=== PATIENT | male | born 1955 | race African-American/Black ===

== ENCOUNTER 2022-02-10 03:12 | Emergency (ER) | payer MEDICARE, MEDICAID ==
[~2022-02-10] VITALS: Ht 175.3 cm; Wt 100.0 kg
[2022-02-10] MEDS ORDERED: SODIUM CHLORIDE 0.9% 1,000 ML IV ONE (05:00)
[2022-02-10] MEDS ORDERED: ONDANSETRON HCL 4MG/2ML INJ IV STA ×2 (05:19→10:17)
[2022-02-10] MEDS ORDERED: MORPHINE SULFATE 4 MG/ML CPJ (NOT FOR IM USE) IV STA ×2 (05:19→10:17)
[2022-02-10 05:48] LABS: BASOPHILS % 0.2 % (0.0-2.0); EOSINOPHILS % 0.2 % (0.0-5.0); HEMATOCRIT. 38.7 % (42.0-52.0); LYMPHOCYTES % 13.8 % (20.0-50.0); MEAN CORPUSCULAR HEMOGLOBIN 29.1 pg (28.0-32.0); MEAN CORPUSCULAR VOLUME 86.3 fL (80.0-94.0); MEAN PLATELET VOLUME 8.2 fl (7.4-10.4); MONOCYTES % 4.5 % (2.0-8.0); NEUTROPHILS % 81.3 % (40.0-76.0); PLATELET 235 x1000/uL (130-400); RED BLOOD CELL COUNT 4.48 mill/uL (4.7-6.1)
[2022-02-10 05:57] LABS: CHLORIDE 97 mEq/L (98-107)
[2022-02-10 07:36] LABS: CLARITY URINE CLEAR (CLEAR); COLOR URINE YELLOW (YELLOW); KETONES URINE NEGATIVE (NEGATIVE); LEUKOCYTE ESTERASE URINE NEGATIVE (NEGATIVE); NITRITE URINE NEGATIVE (NEGATIVE); OCCULT BLOOD URINE NEGATIVE (NEGATIVE); PROTEIN URINE NEGATIVE (NEGATIVE); SPECIFIC GRAVITY URINE 1.015 (1.005-1.030); UROBILINOGEN URINE 0.2 E.U./dL (0.2-1.0)
[2022-02-10 17:25] VITALS: BP 141/78
== END 2022-02-10 18:02 | disposition short-term general hospital (02) ==
LOC: ER 03:12 → EDBEDREQSVC 14:06 → CANBEDREQ 15:57 → ER 18:02
DX: K56.609 Unspecified intestinal obstruction, unspecified as to partial versus complete obstruction (principal); I10 Essential (primary) hypertension; E11.9 Type 2 diabetes mellitus without complications; Z20.822 Contact with and (suspected) exposure to COVID-19; Z88.6 Allergy status to analgesic agent; Z98.890 Other specified postprocedural states
CPT/HCPCS: 36415; 74176; 80053; 81003; 83690; 85025; 87426; 96361; 96374; 96375; 96376; 99285; C9803; J2270; J2405; J7030

== ENCOUNTER 2023-04-07 03:35 | Emergency (ER) | payer MEDICARE, MEDICAID ==
[~2023-04-07] VITALS: Ht 172.7 cm; Wt 84.0 kg
[2023-04-07 03:44] VITALS: BP 152/86; PULSE 104; RESP 20; TEMP 98.7; O2SAT 97
[2023-04-07 05:03] LABS: BASOPHILS % 0.7 % (0.0-2.0); EOSINOPHILS % 0.3 % (0.0-5.0); HEMATOCRIT. 41.6 % (42.0-52.0); LYMPHOCYTES % 11.7 % (20.0-50.0); MEAN CORPUSCULAR HEMOGLOBIN 27.3 pg (28.0-32.0); MEAN CORPUSCULAR HGB CONC 31.4 g/dL (31.0-37.0); MEAN CORPUSCULAR VOLUME 86.9 fL (80.0-94.0); MEAN PLATELET VOLUME 8.3 fl (7.4-10.4); MONOCYTES % 3.8 % (2.0-8.0); NEUTROPHILS % 83.5 % (40.0-76.0); PLATELET 233 x1000/uL (130-400); RED BLOOD CELL COUNT 4.78 mill/uL (4.7-6.1); RED CELL DISTRIBUTION WIDTH 14.6 % (11.6-14.6); WHITE BLOOD COUNT 10.1 x1000/uL (4.5-11.0)
[2023-04-07 05:18] LABS: ALANINE AMINOTRANSFERASE 30 IU/L (10-49); ALBUMIN 4.8 g/dL (3.2-4.8); ASPARTATE AMINOTRANSFERASE 30 IU/L (<34); BILIRUBIN TOTAL 0.5 mg/dL (0.1-1.0); CALCIUM 10.3 mg/dL (8.7-10.4); CARBON DIOXIDE 28 mEq/L (21-32); CHLORIDE 99 mEq/L (98-107); CREATININE 0.9 mg/dL (0.6-1.3); GLUCOSE 192 mg/dL (70-105); POTASSIUM 4.4 mEq/L (3.5-5.1); PROTEIN TOTAL 7.8 g/dL (6.0-8.3); SODIUM 136 mEq/L (136-145); UREA NITROGEN BLOOD 11 mg/dL (9-23)
== END 2023-04-07 06:57 | disposition left against medical advice (07) ==
LOC: ER 03:35
DX: Z53.21 Procedure and treatment not carried out due to patient leaving prior to being seen by health care provider (principal)
CPT/HCPCS: 36415; 80053; 85025; 99281